=== PATIENT | male | born 1970 | race Caucasian/White ===

== ENCOUNTER 2024-12-22 06:13 | Outpatient (CLI) | payer BC ==
[2024-12-22] MEDS ORDERED: iohexol 300 MG/1 ML 50ml polymer ONE (06:35)
[2024-12-22] MEDS ORDERED: LIDOcaine 1%/PF 5ML 10 MG/ML VIAL ONE (06:36)
[2024-12-22] MEDS ORDERED: LIDOcaine 1% 30ml preserv. free vial ONE (06:36)
[2024-12-22] MEDS ORDERED: GADOTERATE MEGLUMINE 7.5 MMOL/15 ML VIAL IV ONE (06:36)
--- NOTE | 2024-12-22 09:52 | RADIOLOGY REPORT ---
ANGIO ARTHROGRAM (A) Date: 12/22/2024 07:20 AM Clinical History: PAIN IN RIGHT SHOULDER Comparison: None Procedure: Verbal and written informed consent were obtained from the patient for the procedure of right shoulde r fluoroscopically guided arthrogram, after the procedure, risks, and benefits of the procedure were explained to the patient. Risks include bleeding, infection, reaction to injected medications, and damage to surrounding anatomic structures. The patient's questions were answered. The patient's mos t recent medical history was reviewed. A time out was performed to verify the patient's name, date of , and correct location of the pro cedure, prior to initiation of the procedure. The patient was placed supine on the fluoroscopic table and the area overlying the right shoulder collin nt was prepped and draped in the usual sterile fashion. The patient tolerated the procedure well. There were no immediate complications. Home-care instruct ions were reviewed with the patient prior to the patient's discharge from the fluoroscopy suite. The patient verbally affirmed understanding of these instructions. Impression: Technically successful fluoroscopically guided RIGHT SHOULDER JOINT arthrogram. The patient was kirk sported to MRI for further imaging at the completion of the procedure.
--- NOTE | 2024-12-22 10:03 | RADIOLOGY REPORT ---
CLINICAL INDICATION: PAIN IN RIGHT SHOULDER. COMPARISON: None TECHNIQUE: Multiplanar, multi-sequence MRI of the right shoulder was performed after the uneve ntful intra-articular administration of a dilute gadolinium solution. Contrast: None INTERPRETATION: Glenohumeral joint: The joint is appropriately distended with intra-articular contrast. There is no f racture or bone marrow edema. The alignment is normal. There is no focal cartilage defect. Acromioclavicular joint: The acromoclavicular joint is narrowed with capsular hypertrophy. There is a type 1 acromion. Rotator cuff and bursae: There is supraspinatus tendinosis and a partial-thickness articular surface tear. There is infraspinatus tendinosis and partial-thickness articular surface tear. Subscapularis t endinosis without tear. Teres minor tendon is intact. There is no muscle atrophy. There is fluid in the subacromial subdeltoid bursa Biceps tendon and glenoid labrum: The biceps tendon is normal in appearance. The labrum is unremarkab le. IMPRESSION: 1. 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 2. Supraspinatus tendinosis and partial-thickness articular surface tear. Infraspinatus tendinosis a nd partial-thickness articular surface tear.
== END 2024-12-22 23:59 | disposition home or self-care (01) ==
LOC: RAD 06:13
PROVIDERS: ATTEND Pediatrics Sports Medicine
DX: M75.41 Impingement syndrome of right shoulder (principal); M75.111 Incomplete rotator cuff tear or rupture of right shoulder, not specified as traumatic; M25.511 Pain in right shoulder; M19.011 Primary osteoarthritis, right shoulder
CPT/HCPCS: 23350; 73222; 77002; A9575; J2003; J3490; Q9967